=== PATIENT | male | born 1940 | race Hispanic/Latino ===

== ENCOUNTER 2017-10-16 18:10 | Emergency (ER) | payer MEDICARE ==
[2017-10-16] MEDS ORDERED: Morphine 4 MG/ML VIAL ONE (19:40)
[2017-10-16] MEDS ORDERED: Ondansetron ODT 4 MG TAB ONE (19:40)
[2017-10-16 19:44] LABS: #Eosinphils 0.2 thou/uL (0.0-0.7); #Lymphocytes 1.6 thou/uL (1.20-3.40); #Monocytes 0.6 thou/uL (0.11-0.59); #Neutrophils 8.7 thou/uL (1.40-6.50); %Basophils 0.1 % (0.0-1.0); %Eosinophils 1.5 % (0.0-10.0); %Lymphocytes 14.5 % (21.0-51.0); %Monocytes 5.4 % (0.0-10.0); %Neutrophils 78.6 % (42.0-75.0); Hemoglobin 14.6 g/dL (14.0-18.0); Mean Corpuscular Volume 87.8 fl (80.0-94.0); Mean Platelet Volume 7.3 fL (7.4-10.4); Platelet Count 229 thou/uL (130-400); RBC Distribution Width 12.3 % (11.5-14.5); Red Blood Cell (RBC) Count 5.03 mill/uL (4.70-6.10); White Blood Cell (WBC) Count 11.1 thou/uL (4.8-10.8)
[2017-10-16 20:10] LABS: CKMB 1.2 ng/mL (0-6.6); Troponin I 0.017 ng/mL (< 0.028)
--- NOTE | 2017-10-16 20:12 | RAD ---
AP VIEW CHEST: INDICATIONS: Right-sided rib pain. COMPARISON: None. FINDINGS: There are low lung volumes. 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 There is mild cardiomegaly. No consolidation, pleural effusion, or pneumothorax is evident. No definite displace d right-sided rib fracture is evident. IMPRESSION: 1. Low lung volumes. 2. Mild cardiomegaly. POS: [facility]
[2017-10-16 20:18] LABS: ALT (SGPT) 41 U/L (8-55); AST (SGOT) 48 U/L (5-34); Albumin 4.4 g/dL (3.4-4.8); Alkaline Phosphatase 110 U/L (40-150); Anion Gap 16 mmol/L (10-20); BUN (Urea Nitrogen) 27 mg/dL (8.4-25.7); Bilirubin, Total 0.8 mg/dL (0.2-1.2); CK (CPK) 53 U/L (30-200); Calc. Creatinine Clearance 0 mL/min (70-130); Calcium 9.7 mg/dL (7.8-10.44); Carbon Dioxide 25 mmol/L (23-31); Chloride 103 mmol/L (98-107); Estimated GFR-MDRD 49; Glucose 111 mg/dL (83-110); Lipase 58 U/L (8-78); Protein, Total 8.4 g/dL (5.8-8.1); Sodium 139 mmol/L (136-145)
[2017-10-16] MEDS ORDERED: hydrALAZINE 20 MG/ML VIAL ONE (23:18)
[2017-10-16 23:19] LABS: Troponin I 0.018 ng/mL (< 0.028)
== END 2017-10-17 00:10 | disposition home or self-care (01) ==
LOC: ERS 18:10
DX: R07.89 Other chest pain (principal); Z79.82 Long term (current) use of aspirin; Z79.899 Other long term (current) drug therapy; W17.89XA Other fall from one level to another, initial encounter
CPT/HCPCS: 36415; 71045; 80053; 82553; 83690; 83880; 84484; 85025; 93005; 96374; 96375; J0360; J2270; Q0162